=== PATIENT | male | born 1935 | race Caucasian/White ===

== ENCOUNTER 2019-03-25 16:28 | Emergency (ER) | payer OTHER, MEDICAID ==
[2019-03-25] MEDS: KETOROLAC 30 MG INJ IM (19:35)
== END 2019-03-25 19:52 | disposition home or self-care (01) ==
LOC: E/R 16:28
DX: E13.49 Other specified diabetes mellitus with other diabetic neurological complication (principal); I10 Essential (primary) hypertension; Z79.84 Long term (current) use of oral hypoglycemic drugs
CPT/HCPCS: 96372; 99284-25